=== PATIENT | male | born 1995 | race Caucasian/White ===

== ENCOUNTER 2019-01-05 20:12 | Emergency (ER) | payer MEDICAID ==
[~2019-01-05] VITALS: Ht 170.2 cm; Wt 49.0 kg
[2019-01-05 20:18] VITALS: BP_SYST 160
[2019-01-05] MEDS ORDERED: ESCI5TAB PO (20:27)
[2019-01-05] MEDS ORDERED: LISI10TA PO (20:27)
[2019-01-05] MEDS ORDERED: BACITRACIN 1 GM OINT TP ONE (20:45)
[2019-01-05] MEDS ORDERED: cloNIDine HCL 0.1 MG TABLET PO ONE (20:45)
[2019-01-05 21:20] VITALS: BP_SYST 148
== END 2019-01-05 21:48 ==
LOC: SED 20:12
DX: S50.812A Abrasion of left forearm, initial encounter (principal); S40.811A Abrasion of right upper arm, initial encounter; S30.811A Abrasion of abdominal wall, initial encounter; F10.129 Alcohol abuse with intoxication, unspecified; I10 Essential (primary) hypertension; F41.9 Anxiety disorder, unspecified; F32.9 Major depressive disorder, single episode, unspecified; Z79.899 Other long term (current) drug therapy; V47.6XXA Car passenger injured in collision with fixed or stationary object in traffic accident, initial encounter; Y93.89 Activity, other specified; Y92.410 Unspecified street and highway as the place of occurrence of the external cause; Y99.8 Other external cause status
CPT/HCPCS: 99283